=== PATIENT | male | born 1955 | race Caucasian/White ===

== ENCOUNTER 2017-10-10 09:59 | Outpatient (CLI) | payer OTHER ==
[2016-01-04 09:43] VITALS: BP 140/78
[2017-10-10] MEDS ORDERED: ALBUTEROL SULFATE 2.5 MG/3 ML AMPUL.NEB NEB ONE (10:13)
== END 2017-10-10 10:00 ==
LOC: RT 09:59
PROVIDERS: ATTEND Family Medicine
DX: R07.0 Pain in throat (principal); R07.9 Chest pain, unspecified
CPT/HCPCS: 94060